=== PATIENT | female | born 1990 | race Caucasian/White ===

== ENCOUNTER 2019-07-29 09:52 | Emergency (ER) | payer MEDICAID ==
[~2019-07-29] VITALS: Ht 162.6 cm; Wt 64.5 kg
[2019-07-29 09:55] VITALS: Ht 162.6 cm; Wt 64.5 kg
[2019-07-29] MEDS ORDERED: PRENAVITE1 TAB PO (09:56)
[2019-07-29] MEDS ORDERED: MACRODANTIN100 MG PO (10:00)
[2019-07-29 10:28] LABS: BASOPHILS 0.3 % (0-2); EOSINOPHILS 0.2 % (0-7); HEMATOCRIT 34.5 % (36.0-48.0); HEMOGLOBIN 11.4 g/dL (12-16); IMMATURE GRANULOCYTES 0.2 % (0-5); LYMPHOCYTES 9.4 % (15-50); MCH 27.9 pg (26.0-34.0); MCV 84.4 fL (80.0-100.0); MEAN PLATELET VOLUME 9.8 fL (7.4-10.4); MONOCYTES 7.7 % (2-11); NEUTROPHILS 82.2 % (40-80); PLATELET COUNT 280 10x3/uL (130-400); RBC 4.09 10x6/uL (4.00-5.40); RDW 13.8 % (11.5-14.5); WBC 8.9 10x3/uL (4.8-10.8)
[2019-07-29 10:34] LABS: CALC OSMOLALITY 265 mosm/kg (275-300); CALCIUM 8.9 mg/dL (8.5-10.1); CARBON DIOXIDE 24.5 mmol/L (21.0-32.0); CHLORIDE - SERUM 100 mmol/L (98-107); CREATININE - SERUM 0.6 mg/dL (0.6-1.3); GLUCOSE 76 mg/dL (74-106); POTASSIUM - SERUM 3.2 mmol/L (3.5-5.1); SODIUM 134 mmol/L (136-145); UREA NITROGEN 9 mg/dL (7-18); eGFR NON AFRICAN AMERICAN > 90 mL/min (90-120)
[2019-07-29 10:36] LABS: HCG SERUM POSITIVE (NEGATIVE)
[2019-07-29 11:04] LABS: ALBUMIN 3.1 g/dL (3.4-5.0); ALKALINE PHOSPHATASE 75 U/L (30-120); ALT (SGPT) 24 U/L (10-68); BILIRUBIN - TOTAL 0.25 mg/dL (0.2-1.3); HCG - QUANTITATIVE (MATERNAL) 75427 mIU/mL; PROTEIN - SERUM 9.3 g/dL (6.4-8.2)
[2019-07-29 11:08] LABS: BACTERIA MODERATE /hpf (NEGATIVE); BILIRUBIN NEGATIVE (NEGATIVE); EPITHELIAL CELLS 0-5 /hpf (0-5); GLUCOSE NEGATIVE (NEGATIVE); KETONE NEGATIVE (NEGATIVE); NITRITE NEGATIVE (NEGATIVE); SPECIFIC GRAVITY 1.005 (1.005-1.020); UROBILINOGEN NORMAL (NORMAL); WHITE CELLS - URINE 0-5 /hpf (NEGATIVE)
[2019-07-29] MEDS ORDERED: FLAGYL500 MG PO (12:16)
[2019-07-29 12:58] VITALS: BP 119/76
== END 2019-07-29 12:59 | disposition home or self-care (01) ==
LOC: D.ER 09:52
PROVIDERS: Family Medicine
DX: O20.9 Hemorrhage in early pregnancy, unspecified (principal); Z3A.15 15 weeks gestation of pregnancy; A59.9 Trichomoniasis, unspecified

== ENCOUNTER 2020-01-13 19:17 | Inpatient (IN) | payer MEDICAID ==
[~2020-01-13] VITALS: Ht 162.6 cm; Wt 72.6 kg
--- NOTE | ~2020-01-13 | OP ---
PATIENT NAME: MAIDA MCKEON MEDICAL RECORD: [id number] :88 LOCATION:[id number] ADMISSION DATE:01/13/20 SURGEON: VINAY LAY MD DATE OF OPERATION: 01/13/2020 PREDELIVERY DIAGNOSES: 1. Active labor at term. 2. Meconium stained fluid. POSTDELIVERY DIAGNOSES: 1. Active labor at term. 2. Meconium stained fluid. 3. Vaginal laceration. PROCEDURE PERFORMED: 1. Vaginal delivery. 2. Repair of vaginal laceration in operation theater. ATTENDING: Vinay Lay MD RADIO PERFORMER: Bernardo Kilgore. ANESTHESIA: Spinal. FINDINGS: At the time of delivery a viable 6 pound 0 ounce male infant is delivered in an RO presentation. Apgars were 8 and 9. Placenta is spontaneous. Initial assessment reveals first degree vaginal laceration at the posterior fourchette and at the 10 o'clock position. Further inspection reveals laceration extending from the introitus along the right sulcus with exposure of perirectal fat. SPECIMENS REMOVED: Placenta. SPECIMEN DISPOSITION: Discarded. ESTIMATED BLOOD LOSS: 700 cc for delivery and operative. FLUIDS: 1 liter of lactated Ringer's. URINE OUTPUT: Quantity sufficient. COMPLICATIONS: None. DRAINS: Fabian to gravity. INDICATION: The patient is a 29-year-old female who ruptured spontaneously at home and was in active labor upon presentation to labor and delivery. The patient progressed to the second stage of labor. During expulsive efforts bright red bleeding was noted around the vertex prior to expulsion. At the time of delivery, the patient did not have an epidural and visualization was limited. With limited visualization, excessive bleeding, and extended laceration, the patient is consented for repair of post-delivery laceration in the operating room. DESCRIPTION OF PROCEDURE: After informed consent was assured, the patient was OPERATIVE REPORT [id number] MAIDA MCKEON taken to the operating room where anesthetic was obtained. The patient is now prepped and draped. Johnson retractors inserted and the blood and clot cleared from the vaginal vault. The extent of the laceration is identified. Starting at the apex of the laceration going along the right sulcus 0 [address]-1 needle is used to reapproximate this tissue. A second layer was applied. After this bleeding vessels which were encountered and unable to be clearly identified are compressed for 3 minutes with good result. A 3-0 chromic is now used to reapproximate the laceration from the 10 o'clock to the 6 o'clock position. There is a second degree laceration of the perineal body, which is repaired with chromic using a running stitch through and through the skin. Vaginal packing is placed and Fabian catheter started. Prior to the initial suturing of the vaginal floor laceration, a solution of methylene blue and saline was placed into the rectal vault and no extravasation of this fluid was seen into the perirectal spaces. Digital exam at the close of the procedure also reveals intact rectal mucosa without presence of sutures. Sponge, lap, needle counts were correct times 2 at the close of the procedure. The patient went to the recovery room in stable condition. TRANSINT:[id number] Voice Confirmation ID: [id number] DOCUMENT ID: [id number] VINAY LAY MD CC: [id number] DICTATION DATE: 01/13/20 2358 WATER CARTER: 01/14/20 0101 ADM IN [facility] [address] [id number]
[~2020-01-13 19:17] MED LIST: FLAGYL500 MG PO; MACRODANTIN100 MG PO; PRENAVITE1 TAB PO
[2020-01-13 19:55] VITALS: BP 132/68; Ht 162.6 cm; Wt 72.6 kg
[2020-01-13 20:01] LABS: HEMATOCRIT 35.2 % (36.0-48.0); HEMOGLOBIN 11.7 g/dL (12-16); MCH 27.5 pg (26.0-34.0); MCHC 33.2 g/dL (31.0-37.0); MCV 82.8 fL (80.0-100.0); MEAN PLATELET VOLUME 11.1 fL (7.4-10.4); RBC 4.25 10x6/uL (4.00-5.40); RDW 13.9 % (11.5-14.5); WBC 12.8 10x3/uL (4.8-10.8)
[2020-01-13 21:10] LABS: BILIRUBIN NEGATIVE (NEGATIVE); KETONE SMALL mg/dL (NEGATIVE); NITRITE NEGATIVE (NEGATIVE); UROBILINOGEN NORMAL (NORMAL)
[2020-01-13 21:20] LABS: UDS - AMPHET NEGATIVE QUAL (NEGATIVE); UDS - BARB NEGATIVE QUAL (NEGATIVE); UDS - BENZO NEGATIVE QUAL (NEGATIVE); UDS - COCAINE NEGATIVE QUAL (NEGATIVE); UDS - OPIATE NEGATIVE QUAL (NEGATIVE); UDS - PCP NEGATIVE QUAL (NEGATIVE); UDS - THC NEGATIVE QUAL (NEGATIVE)
--- NOTE | 2020-01-13 23:45 | NUR ---
HERBERT X2 WITH TRIPLE AB OINTMENT AND PETROLEUM OINTMENT VAGINAL, ALEX.
--- NOTE | 2020-01-13 23:58 | NUR ---
PT TO ROOM 1276 FROM OR AT THIS TIME.
[2020-01-14 00:06] VITALS: BP 98/66
--- NOTE | 2020-01-14 00:39 | NUR ---
FUNDUS FIRM, MIDLINE, 2 BELOW, PACKING IN PLACE, UNABLE TO ASSESS BLEDING DUE TO PACKING IN PLACE. PT DENIES ANY PAIN/DISCOMFORT AT THIS TIME. RENEE CATHETER IN PLACED DRAINING TO GRAVITY AT BEDSIDE, 250ML OF CLEAR YELLOW URINE IN UROMETER.
--- NOTE | 2020-01-14 01:26 | NUR ---
RN TO PT BEDSIDE AT THIS TIME, PT SALINE LOCKED AT THIS TIME. PT GIVEN SNACK TRAY. PT STATES SHE HAS MILD DISCOMFORT TO HER ABDOMEN AREA, RN TO REVIEW MAR AT THIS TIME.
--- NOTE | 2020-01-14 03:14 | NUR ---
RN TO PT BEDSIDE FOR ROUNDING, PT SLEEPING AT THIS TIME.
--- NOTE | 2020-01-14 04:36 | NUR ---
RN TO PT BEDSIDE FOR ROUNDING, PT'S ONLY REQUEST IS TO CHANGE THE CHUX PADS, CHUX PADS CHANGED, PT'S FUNDUS IS FIRM, MIDLINE, 2 BELOW, BED IN LOWEST POSITION, SIDE RAILS UPX2,CALL LIGHT IN REACH.
[2020-01-14 06:42] VITALS: BP 109/72
--- NOTE | 2020-01-14 06:42 | NUR ---
RN TO PT BEDSIDE, 750ML URINE EMPTIED FROM RENEE CATHETER, CLEAR YELLOW IN COLOR, PT COMPLAINS SHE HAS MILD DISCOMFORT IN HER ABDOMEN. VSS. FUNDUS FIRM, MIDLINE, PACKING STILL IN PLACE, BED IN LOWEST POSITION, SIDE RAILS UPX2, CALL LIGHT IN PLACE.
[2020-01-14 07:42] VITALS: BP 106/73
--- NOTE | 2020-01-14 07:51 | NUR ---
SITTING UP ION BED. BREAKFAST SERVED. STATES THAT HAS SOME PAIN PERINEAL AREA- WHERE SUTURES ARE. FUNDUS U2/FIRM. SCANT LOCHIA NOTED ON PAD. RENEE CATH DRAINING CLEAR PALE YELLOW URINE- 240CC IN CONTAINER.
--- NOTE | 2020-01-14 08:15 | NUR ---
ASSESSMENT DONE. PT AWAKE AND SITTING UP IN BED. STATES SHE IS PASSING GAS AND GOING TO BATHROOM NEEDED.
--- NOTE | 2020-01-14 08:28 | NUR ---
DR SINGH HERE TO SEE PT- DISCHARGE INST GIVEN TO PT PER DR SINGH.
[2020-01-14 08:44] LABS: HEMATOCRIT 24.8 % (36.0-48.0); MCHC 32.3 g/dL (31.0-37.0); MCV 83.8 fL (80.0-100.0); MEAN PLATELET VOLUME 11.2 fL (7.4-10.4); RDW 13.9 % (11.5-14.5)
[2020-01-14 08:45] LABS: RBC 2.96 10x6/uL (4.00-5.40); WBC 16.8 10x3/uL (4.8-10.8)
--- NOTE | 2020-01-14 10:33 | NUR ---
STATES THAT PAIN IS NOT MUCH BETTER AFTER NORCO 5- STATES WILL TAKE NORCO 10 AT NEXT MED TIME.
--- NOTE | 2020-01-14 11:32 | NUR ---
MED GIVEN FOR PAIN- RATES PAIN A 3 ON SCALE OF 0-10. NO BLEEDING NOTED ON PAD UNDERNEATH.
--- NOTE | 2020-01-14 12:35 | NUR ---
DR LAY IN UNIT. VAG PACKING REMOVED PER THIS NURSE. NO BLEEDING FOLLOWING REMOVAL OF PACKING. VS DONE.
[2020-01-14 12:36] VITALS: BP 118/81
--- NOTE | 2020-01-14 12:36 | NUR ---
SITTING UP TO EAT LUNCH AT THIS TIME.
--- NOTE | 2020-01-14 12:42 | NUR ---
REPORT TO DR LAY OF PACKING REMOVAL- NO NEW ORDERS.
--- NOTE | 2020-01-14 14:00 | NUR ---
NO BLEEDING NOTED- RENEE CATH REMOVED POST BULB DEFLATED WITH 11OOCC URINE IN BAG. PT STATES WANTS TO SHOWER NOW. UP TO SHOWER AND TOLERATED WELL. LINENS CHANGED.
--- NOTE | 2020-01-14 16:00 | NUR ---
DOZING AT THIS TIME. RESP REG AND EVEN.
--- NOTE | 2020-01-14 16:36 | NUR ---
UP TO BATHROOM TO VOID. SMALL LOCHIA NOTED ON PAD. VOIDED 300CC. BETADINE AND WARM WATER PERICARE DONE.
--- NOTE | 2020-01-14 17:24 | NUR ---
DERMAPLAST AND TUCKS PADS TO ROOM FOR NEXT VOID. EATING FOOD BROUGHT IN BY SIGN OTHER. NO REQUESTS.
--- NOTE | 2020-01-14 18:28 | NUR ---
RESTING IN BED- DENIES NEEDS.
--- NOTE | 2020-01-14 18:50 | NUR ---
REPORT TO PM SHIFT.
[2020-01-14 19:30] VITALS: BP 115/73
--- NOTE | 2020-01-14 19:30 | NUR ---
ASSESSMENT PER FLOW SHEET, VS OBTAINED, SALINE LOCK IN RIGHT HAND INTACT WITH NO REDNESS OR EDEMA, FF, ML, U/2, PT REPORTS LITE BLEEDING WITH NO CLOTS, PT REPORTS FLATUS, NO BM AND VOIDING WITH NO DIFFICULTY, PT STATES "I ACTUALLY NEED TO GET UP TO PEE NOW", PT UP TO BR, GAIT STEADY, DENIES ANY DIZZYNESS OR LIGHTHEADEDNESS, PT VOIDED WITH NO DIFFICULTY, USING YOMI CARE INST, PT OUT OF BR, REQUESTS TO STAND FOR A FEW MINUTES, EMPTIED 350 MLS OF LIGHTLY BLOOD TINGED URINE, PT RATES YOMI PAIN 5/, WILL ADM PAIN MED, NSY NURSE IN ROOM DOING ASSESSMENT ON
--- NOTE | 2020-01-14 19:52 | NUR ---
PT BACK IN BED, FOB HOLDING SKIN TO SKIN, ADM PERCOCET PO PER MD ORDERS, SEE EMAR, PT DENIES FURTHER NEEDS
--- NOTE | 2020-01-14 20:33 | NUR ---
PT BOTTLE FEEDING INFANT, RATES YOMI PAIN 2/10, DENIES NEEDS, FOB ON COUCH
--- NOTE | 2020-01-14 21:28 | NUR ---
PT RESTING, INFANT IN OPEN CRIB CART AT BEDSIDE, PT DENIES NEEDS OR PAIN AT THIS TIME, FOB ASLEEP ON COUCH
--- NOTE | 2020-01-14 22:34 | NUR ---
PT RESTING, AROUSES TO OPENING OF DOOR, PT DENIES NEEDS OR PAIN AT THIS TIME, INFANT IN OPEN CRIB CART AND FOB ON COUCH
--- NOTE | 2020-01-15 00:02 | NUR ---
PT RESTING WITH EYES CLOSED, RESP QUIET, NO DISTRESS NOTED, LEFT UNDISTURBED AT THIS TIME, IN OPEN CRIB CART AND FOB ASLEEP ON COUCH
--- NOTE | 2020-01-15 01:35 | NUR ---
PT RESTING WITH EYES CLOSED, AROUSES TO SOFT VERBAL STIMULATION, INFORMED PT THAT I AM TAKING INFANT TO NSY, PT VERBALIZES UNDERSTANDING, DENIES NEEDS OR PAIN AT THIS TIME, FOB ASLEEP ON COUCH
--- NOTE | 2020-01-15 02:36 | NUR ---
PT RESTING WITH EYES CLOSED, RESP QUIET, NO DISTRESS NOTED, LEFT UNDISTURBED AT THIS TIME, FOB ASLEEP ON COUCH
--- NOTE | 2020-01-15 04:24 | NUR ---
PT RESTING WITH EYES CLOSED, RESP QUIET, NO DISTRESS NOTED, LEFT UNDISTURBED AT THIS TIME, FOB ASLEEP ON COUCH
[2020-01-15 06:10] LABS: RAPID PLASMA REAGIN Non Reactive (Non Reactive)
--- NOTE | 2020-01-15 06:36 | NUR ---
PT AWAKE, HOLDING , REPORTS TRYING TO GET INFANT TO FEED, TALKED TO PT ABOUT ROOMING IN JUST IN CASE IS NOT DISCHARGED TODAY, PT VERBALIZES UNDERSTANDING, DENIES NEEDS OR QUESTIONS AT THIS TIME, FOB ASLEEP ON COUCH
--- NOTE | 2020-01-15 06:51 | NUR ---
SHIFT REPORT TO DAY SHIFT
--- NOTE | 2020-01-15 07:26 | NUR ---
RN TO BEDSIDE. PT AND SIGNIFICANT OTHER BOTH RESTING QUIETLY WITH EYES CLOSED. RESP REGULAR AND UNLABORED, NO S/S OF DISTRESS NOTED. RESTING QUIETLY IN OPEN CRIB. WILL CONTINUE TO MONITOR.
[2020-01-15 08:13] VITALS: BP 112/70
--- NOTE | 2020-01-15 08:13 | NUR ---
SHIFT ASSESSMENT COMPLETED PER FLOWSHEET. VSS. FUNDUS FIRM, MIDLINE AND U2 WITH SMALL AMT RUBRA LOCHIA, NO CLOTS NOTED. REPORTS THAT SHE IS VOIDING AND PASSING FLATUS WITHOUT DIFFICULTY. VERBALIZES UNDERSTANDING OF PERICARE. POC DISCUSSED WITH PT AND SIGNIFICANT OTHER, BOTH VERBALIZE UNDERSTANDING AND DENY QUESTIONS. BED IN LOW POSITION WITH SRUP X2. CALL LIGHT AND PHONE WITHIN REACH. WILL CONTINUE TO MONITOR.
--- NOTE | 2020-01-15 09:24 | NUR ---
DR. SINGH ON UNIT. POC DISCUSSED AND PT REQUEST TO D/C DISCUSSED. ORDERS REC'D. PT UPDATED ON POC AND VERBALIZES UNDERSTANDING. PT DENIES PAIN AND NEEDS AT THIS TIME. BED IN LOW POSITION WITH SRUP X2. CALL LIGHT AND PHONE JANNETH ARAMBULA. WILL CONTINUE TO MONITOR.
--- NOTE | 2020-01-15 10:32 | NUR ---
lab staff, chago, notified of cbc order/draw needed. states will notify tech for draw as soon as possible. relayed this information to primary rn.
--- NOTE | 2020-01-15 11:04 | NUR ---
C/O PERINEAL DISCOMFORT, REQUESTS INTEVENTION. NORCO PROVIDED PER REQUEST AND ORDER. DERMAPLAST AND TUX PROVIDED PER REQUEST, STATES THAT SHE IS ALMOST OUT. PREPARING TO BOTTLE FEED . DENIES ADDITIONAL NEEDS. ICE WATER PROVIDE. BED IN LOW POSITION WITH SRUP X2. CALL LIGHT AND PHONE WITHIN REACH. WILL CONTINUE TO MONITOR.
[2020-01-15 11:25] LABS: BASOPHILS 0.2 % (0-2); EOSINOPHILS 0.3 % (0-7); HEMATOCRIT 24.3 % (36.0-48.0); HEMOGLOBIN 7.6 g/dL (12-16); IMMATURE GRANULOCYTES 0.5 % (0-5); LYMPHOCYTES 11.3 % (15-50); MCH 26.4 pg (26.0-34.0); MCHC 31.3 g/dL (31.0-37.0); MCV 84.4 fL (80.0-100.0); MEAN PLATELET VOLUME 10.6 fL (7.4-10.4); MONOCYTES 5.8 % (2-11); NEUTROPHILS 81.9 % (40-80); PLATELET COUNT 228 10x3/uL (130-400); RBC 2.88 10x6/uL (4.00-5.40); RDW 14.1 % (11.5-14.5); WBC 10.2 10x3/uL (4.8-10.8)
--- NOTE | 2020-01-15 11:47 | NUR ---
PAIN NOW 1-06/21, DENIES NEED FOR ADDITIONAL INTERVENTION. REPORTS THAT SHE DID PERICARE FOLLOWING VOIDING AND IT HELPED WITH DISCOMFORT ALSO. DENIES NEEDS. FOB REMAINS AT BEDSIDE, SUPPORTIVE AND ATTENTIVE TO PT AND INFANT NEEDS. BED IN LOW POSITION WITH SRUP X2. CALL LIGHT AND PHONE WITHIN REACH.
--- NOTE | 2020-01-15 12:57 | NUR ---
ROUNDS MADE. BONDING WITH IN ARMS. DENIES PAIN AND NEEDS AT THIS TIME. WILL CONTINUE TO MONITOR.
--- NOTE | 2020-01-15 13:49 | NUR ---
RESTING QUIETLY WITH EYES CLOSED IN SEMI-FOWLERS POSITION RESP REGULAR AND UNLABORED, NO S/S OF DISTRESS NOTED. INFANT RESTING QUIETLY IN OPEN CRIB AT BEDSIDE. BED IN LOW POSITION WITH SRUP X2. CALL LIGHT AND PHONE WITHIN REACH. WILL CONTINUE TO MONITOR.
[2020-01-15] MEDS ORDERED: HYDROCODON-ACE1 EAC7 PO (14:52)
--- NOTE | 2020-01-15 15:07 | NUR ---
VERBAL AND WRITTEN D/C INSTRUCTIONS PROVIDED. PT VERBALIZES UNDERSTANDING AND DENIES QUESTIONS. PT PROVIDED WITH [facility] PP CARE INSTRUCTION HANDOUT, [employer] HANDOUT, SAVE YOUR LIFE HANDOUT, AND INFO TO AR TOBACCO QUITLINE. REFUSES TDAP INJ AT THIS TIME. PT OFF UNIT VIA W/C WITH THIS RN. IN CARSEAT TO AWAITING VECHILE WITH SIGNIFICANT OTHER.
== END 2020-01-15 15:07 | disposition home or self-care (01) | DRG 807 ==
LOC: D.LDO 19:17 → D.LD 19:31
PROVIDERS: Student in an Organized Health Care Education/Training Program; ADMIT Obstetrics & Gynecology; ATTEND Obstetrics & Gynecology
PROC: 0HQ9XZZ Repair Perineum Skin, External Approach (ICD-10-PCS; 2020-01-13)
PROC: 10E0XZZ Delivery of Products of Conception, External Approach (ICD-10-PCS; principal; 2020-01-13 22:35)
DX: O77.0 Labor and delivery complicated by meconium in amniotic fluid (principal); Z37.0 Single live birth; Z3A.38 38 weeks gestation of pregnancy; O70.0 First degree perineal laceration during delivery; O90.81 Anemia of the puerperium